=== PATIENT | male | born 1990 ===

== ENCOUNTER 2019-01-03 20:22 | Emergency (ER) | payer SELFPAY ==
--- NOTE | 2019-01-03 22:15 | Event Note ---
ED Screening Note Date of service: 01/03/19 Time: 22:14 ED Screening Note: 18 y/o male comes in for acute memory loss after being stuck in the head by another person head while playing soccer. This initial assessment/diagnostic orders/clinical plan/treatment(s) is/are subject to change based on patients health status, clinical progression and re- assessment by fellow clinical providers in the ED. Further treatment and workup at subsequent clinical providers discretion. Patient/guardian urged not to elope from the ED as their condition may be serious if not clinically assessed and managed. Initial orders include:
--- NOTE | 2019-01-03 23:21 | Emergency Department Report ---
ED Head Trauma HPI - General Chief complaint: Head Injury Stated complaint: HIT IN THE BACK OF HEAD Time Seen by Provider: 01/03/19 23:07 Source: patient Mode of arrival: Ambulatory Limitations: No Limitations - History of Present Illness Initial comments: 28 yo M presents to ED following head injury. Patient was playing soccer, jumped up and fell backwards hitting his head. No LOC. Patient continued to play in the game afterward. Patient sustained another head injury in the game when he was hit in the head with a ball. Again no LOC. However, afterward patient did not remember what happened. Patient currently denies headache or neck pain,nausea and vomiting, or dizziness. MD Complaint: head injury -: This afternoon Mechanism of Injury: sports related injury Location: occipital Loss of Consciousness: no Previous Trauma to this Area: No Place: outdoors Severity: moderate Other Injuries: none Associated Symptoms: amnesia (to the events). denies: repetitive questioning, vision changes, nausea, vomiting, vertigo, numbness, weakness, tingling, neck pain - Related Data Previous Rx's Medication Instructions Recorded Last Taken Type Naproxen [Naprosyn] 500 mg PO BID #20 tablet 01/04/19 Unknown Rx Allergies/Adverse reactions: Allergies Allergy/AdvReac Type Severity Reaction Status Date / Time No Known Allergies Allergy Verified 01/03/19 20:35 ED Review of Systems ROS: Stated complaint: HIT IN THE BACK OF HEAD Other details as noted in HPI Comment: All other systems reviewed and negative Gastrointestinal: denies: nausea, vomiting Neurological: headache. denies: weakness, numbness, paresthesias, vertigo ED Past Medical Hx - Past Medical History Previous Medical History?: No - Surgical History Past Surgical History?: No - Social History Smoking Status: Never Smoker Substance Use Type: None - Medications Home Medications: Home Medications Medication Instructions Recorded Confirmed Last Taken Type Naproxen [Naprosyn] 500 mg PO BID #20 tablet 01/04/19 Unknown Rx ED Physical Exam - General Limitations: No Limitations General appearance: alert, in no apparent distress - Head Head exam: Present: atraumatic, normocephalic, normal inspection - Eye Eye exam: Present: normal appearance, PERRL, EOMI - ENT ENT exam: Present: mucous membranes moist - Neck Neck exam: Present: normal inspection, full ROM. Absent: tenderness - Respiratory Respiratory exam: Present: normal lung sounds bilaterally. Absent: respiratory distress - Cardiovascular Cardiovascular Exam: Present: regular rate, normal rhythm - GI/Abdominal GI/Abdominal exam: Absent: distended - Extremities Exam Extremities exam: Present: normal inspection - Neurological Exam Neurological exam: Present: alert, oriented X3, CN II-XII intact, normal gait. Absent: motor sensory deficit - Psychiatric Psychiatric exam: Present: normal affect, normal mood - Skin Skin exam: Present: warm, dry, intact, normal color ED Course Vital Signs 01/03/19 01/03/19 01/03/19 20:37 20:53 22:18 Temperature 98.9 F 98.9 F Pulse Rate 74 71 68 Respiratory 18 18 13 Rate Blood Pressure 126/80 126/80 Blood Pressure [Left] O2 Sat by Pulse 98 98 98 Oximetry 01/03/19 01/03/19 01/03/19 22:30 22:44 22:45 Temperature 98.3 F Pulse Rate 65 Respiratory 11 L 13 Rate Blood Pressure 128/83 Blood Pressure [Left] O2 Sat by Pulse 99 99 Oximetry 01/04/19 02:16 Temperature Pulse Rate 63 Respiratory 19 Rate Blood Pressure Blood Pressure 131/81 [Left] O2 Sat by Pulse 98 Oximetry - Radiology Data Radiology results: report reviewed, image reviewed - Medical Decision Making - CT Head negative - GCS 15 - no neuro deficits - remains pain free - return precautions given - Differential Diagnosis concussion, intracranial injury Critical care attestation.: If time is entered above; I have spent that time in minutes in the direct care of this critically ill patient, excluding procedure time. ED Disposition Clinical Impression: Head injury Disposition: DC-01 TO HOME OR SELFCARE Is pt being admited?: No Condition: Stable Instructions: Concussion (ED), Minor Head Injury (ED) Prescriptions: Naproxen [Naprosyn] 500 mg PO BID #20 tablet Referrals: AGA GREENWOOD MD [Primary Care Provider] - 3-5 Days JERED SORENSON MD [Referring] - 3-5 Days Time of Disposition: 01:37 Print Language: LITHUANIAN
--- NOTE | 2019-01-04 01:17 | Cat Scan Report ---
PROCEDURE: CT head without contrast. TECHNIQUE: Computerized tomography of the head was performed without contrast material. CT DOSE LENGTH PRODUCT: Not provided mGycm HISTORY: head injury COMPARISONS: None. FINDINGS: The ventricles are normal in size. The solis matter and white matter appear normal. There are no mass lesions. There is no intracranial hemorrhage. The calvarium appears intact. The mastoid air cells and visualized paranasal sinuses are well aerated. IMPRESSION: Normal study. This document is electronically signed by Antoine Mark MD., January 04 2019 01:15:09 AM ET
[2019-01-04 02:17] VITALS: BP 131/81
== END 2019-01-04 02:16 | disposition home or self-care (01) ==
LOC: ED 20:22
DX: S09.90XA Unspecified injury of head, initial encounter (principal); X58.XXXA Exposure to other specified factors, initial encounter; Y93.66 Activity, soccer; Y92.89 Other specified places as the place of occurrence of the external cause; Y99.8 Other external cause status
CPT/HCPCS: 70450